=== PATIENT | female | born 1955 | race Asian ===

== ENCOUNTER → 2018-05-04 | Outpatient (CLI) | payer OTHER ==
[~2018-05-04] MED LIST: ASPI325T39 PO; GLUCTAB18 PO; IBUP-103 PO; MULT-506 PO
--- NOTE | 2018-05-04 08:27 | DIAGNOSTIC IMAGING REPORT ---
LUMBAR SPINE W/O CONTRAST CLINICAL HISTORY: 62 years-old Female presenting with LOW BACK PAIN, worsening back pain over 2 years, no known injury or prior surgery. TECHNIQUE: Multisequence, multiplanar MR imaging of the lumbar spine was performed without the use of intravenous contrast. IV contrast: None. COMPARISON: Comparison made to CT of abdomen and pelvis from 08/31/2012. FINDINGS: Localizer images: Unremarkable. Normal lumbar lordosis. Vertebral bodies maintain normal height, alignment, and bone marrow signal intensity. Intervertebral disc desiccation noted to a mild degree at L5-S1 with mild height loss. Additional degenerative changes detailed below: L1-2: No significant neural foraminal or spinal canal narrowing. L2-3: Trace eccentric disc bulge and facet arthropathy. No significant neural foraminal or spinal canal narrowing. L3-4: Minimal disc bulge, facet arthropathy, ligamentum flavum thickening result in mild circumferential effacement of the thecal sac. Mild bilateral neural foraminal narrowing more severe on the left secondary to bony spurring of the facet joints. This results in abutment of the exiting left L3 nerve root. L4-5: Minimal disc bulge, facet arthropathy, ligamentum flavum thickening result in mild circumferential effacement of the thecal sac. Mild bilateral neural foraminal narrowing. L5-S1: Minimal disc bulge and facet arthropathy do not result in significant spinal canal narrowing. Moderate bilateral neural foraminal narrowing. Focal eccentric protrusion of the disc also results in mass effect on the exiting right L5 nerve root (series 6 image 22). Spinal cord ends in good position at L1. Cauda equina normal in morphology. Paraspinal musculature without evidence of edema. No gross evidence of an epidural collection. Remaining soft tissues within normal limits. IMPRESSION: 1. Multilevel degenerative changes as detailed above. Facet joint spurring results in abutment of the exiting left L3 nerve root and focal eccentric disc protrusion at L5-S1 results in mass effect on the exiting right L5 nerve root. Additional degenerative changes as above. Electronically signed by: Good Rucker M.D. 05/04/2018 8:26 AM Dictated Date/Time: 05/04/2018 8:21 AM
== END | disposition home or self-care (01) ==
LOC: C.MRIBC 07:41
PROVIDERS: ATTEND Family Medicine
DX: M54.5 Low back pain (principal); M48.061 Spinal stenosis, lumbar region without neurogenic claudication; M47.816 Spondylosis without myelopathy or radiculopathy, lumbar region; M51.27 Other intervertebral disc displacement, lumbosacral region